=== PATIENT | female | born 1945 | race Caucasian/White ===

== ENCOUNTER 2018-03-31 18:16 | Emergency (ER) | payer OTHER ==
[~2018-03-31] VITALS: Ht 152.4 cm; Wt 63.5 kg
== END 2018-03-31 21:40 | disposition home or self-care (01) ==
LOC: ER 18:16
DX: R61 Generalized hyperhidrosis (principal); R53.1 Weakness; R51 Headache; F41.1 Generalized anxiety disorder; N39.0 Urinary tract infection, site not specified